=== PATIENT | female | born 1980 | race Caucasian/White ===

== ENCOUNTER 2016-12-02 09:12 | Outpatient (CLI) | payer MEDICAID, OTHER ==
[~2016-12-02] VITALS: Ht 165.1 cm; Wt 100.0 kg
[2016-12-02 09:32] VITALS: Ht 165.1 cm; Wt 100.0 kg
[2016-12-02] MEDS ORDERED: PRENAT PO (09:32)
--- NOTE | 2016-12-02 10:59 | RADRPT ---
PROCEDURE: US OB biophysical profile. CLINICAL INDICATION: decreased movements, single artery TECHNIQUE: Multiple sonographic images of the pelvis were obtained. The images were reviewed on a PACS workstation. COMPARISON: No prior studies are available for comparison. FINDINGS: There is a single viable intrauterine gestation. Cardiac activity is present with 140 beats per min [place]. There is a vertex presentation. The placenta is posterior. There is no evidence of placental abruption. There is a normal amount of amniotic fluid with an GUERRERO = 15.6 cm. Biophysical profile: movement 2/2 tone 2/2. breathing 2/2 GUERRERO 2/2 Total 03/10 RPTAT: AA . IMPRESSION: Normal biophysical profile. . .Zay Roberts MD, Date Time Electronically viewed and signed by .Zay Roberts MD, MD on 12/02/2016 10:58 .S/
--- NOTE | 2016-12-02 11:00 | RADRPT ---
PROCEDURE: US OB. CLINICAL INDICATION: Size and dates , single artery TECHNIQUE: Multiple sonographic images of the pelvis and gravid uterus were obtained. The images were reviewed on a PACS workstation. COMPARISON: No prior studies are available for comparison. FINDINGS: There is a single viable intrauterine gestation. Cardiac activity is present with 128 beats per min saimr. There is a vertex presentation. The placenta is posterior. There is no evidence for an abruption or placenta previa. There is a normal amount of amniotic fluid with an GUERRERO = 15.6 cm. Measurements were made in order to determine age. The results are as follows: BPD =9.1 cm HC =33.4 cm AC =35.3 cm FL =7.2 cm Estimated gestational age of approximately 37 weeks and 6 days based on ultrasound measurements. Clinical age: 40 weeks and 0 days. The estimated date of delivery is 12/17/16, based on ultrasound measurements. The EFW = 3443 g, 35%, based on LMP age. The anatomy was not evaluated. RPTAT: AA IMPRESSION: Single viable intrauterine gestation of approximately 37 weeks and 6 days based on ultrasound measu rements. Smaller than clinical age by 2 weeks. .Zay Roberts MD, MD Date Time Electronically viewed and signed by .Zay Roberts MD, on 12/02/2016 10:59 .S/
--- NOTE | 2016-12-02 11:21 | QN ---
Documentation Comment @40+wks GA for NST BPP ,Decision is made to admit the patient and induce her labor NSt reassuring Irregular CTXs Cs She signs AMA as she would like to be delivered in [facility] Patients questions are extensively answered Patient is directly going to [facility] ALEK MONTERO M.D. December 02, 2016 11:21
== END 2016-12-02 11:35 | disposition left against medical advice (07) ==
LOC: OBT 09:12 → L-D 09:13 → OBT 11:35
PROVIDERS: ATTEND Obstetrics & Gynecology
DX: O62.9 Abnormality of forces of labor, unspecified (principal); O09.523 Supervision of elderly multigravida, third trimester; O48.0 Post-term pregnancy; Z3A.40 40 weeks gestation of pregnancy
CPT/HCPCS: 76815; 76818; Z7500; G0463

== ENCOUNTER 2017-05-05 05:43 | Day surgery (SDC) | payer OTHER ==
[2017-05-04 09:37] VITALS: BMI 32.9
[2017-05-05] VITALS (11 sets, daily range): BP systolic 105–134; BP diastolic 64–88; PULSE 66–87; RESP 15–26; Ht 162.6 cm; Wt 93.2 kg
[~2017-05-05] VITALS: Ht 162.6 cm; Wt 93.2 kg
[~2017-05-05 05:43] MED LIST: BUPIVACAINE 0.5%/EPI (SDV) 30 ML INJ INJ ONE; PRENAT PO
--- NOTE | 2017-05-05 06:52 | HP ---
Date/Time of Note Date/Time of Note DATE: 05/05/17 TIME: 06:50 Assessment/Plan VTE Prophylaxis VTE Prophylaxis Intervention: SCD's Lines/Catheters IV Catheter Type (from Nrs): Peripheral IV HPI/ROS Admit Date/Time Admit Date/Time patient is requesting permanent sterilization. Risks and benefits and indications and alternatives discussed patients. risks including but not limited to infection, bleeding, damage to other organs such as intestines or bladder, blood transfusion and possibility of failure of procedure discussed with patient. I also explained to her this procedures is permanent and not reversible. other reversible contraceptive methods also discussed with patient. patient also told that our plan is Laparoscopic BTL, but some times the surgery may be converted to Exploratory Laparotomy. Informed consent obtained Allergies: NKDA Medications:none ROS: Significant as above Review of Systems: Constitutional: Denies nausea, vomiting, Fever, Chills, weight loss Eyes: denies pain, discharge or redness Nose: denies pain or bleeding Respiratory: denies SOB, cough or wheezing Cardiovascular: denies chest pain, palpitations or lightheadedness Gastrointestinal: Denies nausea, vomiting, blood in stool Genitourinary: Denies hematuria, dysuria, or flank pain Musculoskeletal: Denies joint pain or swelling Skin: Denies rash, erythema or laceration Neuro: Denies confusion, seizure, headache or dizziness Endocrine: Denies excessive urination or drinking Past Medical History: none Past Surgical Historynone Physical Exam: Afebrile, VSS NAD A&O Heart: RRR Lung: CTA B Abdomen: Soft, Not tender Extremities: No edema Assessment: Patients desires permanent sterilization Plan: Laparoscopic BTL, Possible Exploratory Laparotomy. Exam/Review of Systems Vital Signs Vitals Vital Signs Date Time Temp Pulse Resp B/P Pulse Ox O2 Delivery O2 Flow Rate FiO2 05/05/17 06:40 97.5 87 16 134/88 100 Room Air LUANNE STEVENSON MD May 05, 2017 06:52
[2017-05-05] MEDS ORDERED: LACTATED RINGER'S 1,000 ML IV* SCH (07:00)
[2017-05-05] MEDS ORDERED: CEFAZOLIN 2 GM/50 ML (PMX) 50 ML IVPB SCH (07:00)
[2017-05-05] MEDS ORDERED: BUPIVACAINE 0.5%/EPI (SDV) 30 ML INJ ONE (07:18)
[2017-05-05] MEDS ORDERED: PROPOFOL 20 ML ONE (07:22)
[2017-05-05] MEDS ORDERED: FENTAnyl 50 MCG/ML VIAL ONE (07:22)
[2017-05-05] MEDS ORDERED: ROCURONIUM 50 MG INJ ONE (07:22)
[2017-05-05] MEDS ORDERED: DEXAMETHASONE 4 MG/ML 1 ML INJ ONE (07:52)
[2017-05-05] MEDS ORDERED: METOCLOPRAMIDE 10 MG INJ ONE (07:52)
[2017-05-05] MEDS ORDERED: KETOROLAC 30 MG INJ ONE (07:52)
[2017-05-05] MEDS ORDERED: CEFAZOLIN 1 GM INJ ONE (07:52)
[2017-05-05] MEDS ORDERED: ONDANSETRON 4 MG INJ ONE (07:52)
[2017-05-05] MEDS ORDERED: SUGAMMADEX SODIUM 200 MG/2 ML VIAL IV ONE (07:54)
--- NOTE | 2017-05-05 07:57 | RADRPT ---
PROCEDURE: XR Chest. CLINICAL INDICATION: Preop TECHNIQUE: A single AP view of the chest was obtained. COMPARISON: None. FINDINGS: No focal airspace opacification, pleural effusion or pneumothorax is seen. The cardiomediastinal si lhouette is within normal limits for size. The osseous structures are unremarkable. IMPRESSION: Unremarkable chest x-ray. RPTAT: HH .Krystyna Mc MD, MD Date Time Electronically viewed and signed by .Krystyna Mc MD, on 05/05/2017 07:57 .G/
[2017-05-05] MEDS ORDERED: ONDANSETRON 4 MG INJ IV PRN (08:00)
[2017-05-05] MEDS ORDERED: MEPERIDINE 25 MG INJ IV PRN (08:00)
[2017-05-05] MEDS ORDERED: morphine (1 MG/ML) 10ML SYRINGE IV PRN ×3 (08:00)
[2017-05-05] MEDS ORDERED: FENTAnyl 50 MCG/ML VIAL IV PRN ×3 (08:00)
--- NOTE | 2017-05-05 08:20 | OPR ---
Date/Time of Note Date/Time of Note DATE: 05/05/17 TIME: 08:17 Operative Report Free Text/Dictation DATE OF OPERATION: PREOPERATIVE DIAGNOSIS: Patient desires permanent sterilization. She declined Essure. She desires laparoscopic tubal fulguration. POSTOPERATIVE DIAGNOSIS: Patient desires permanent sterilization. She declined Essure. She desires laparoscopic tubal fulguration. OPERATION PERFORMED: Laparoscopic fulguration and transection of bilateral tubes. SURGEON: Bennett Hdz MD ESTIMATED BLOOD LOSS: Minimal. COMPLICATIONS: None. FINDINGS: Normal tubes, ovaries bilaterally. Normal uterus. CONSENT: Please see my preop H and P consent in the office for the consent process. DESCRIPTION OF PROCEDURE: She was taken to operating room and general anesthesia was induced. She was prepped and draped in the usual sterile fashion in dorsal lithotomy position. Surgical time-out was done. Anterior lip of the cervix was grasped using a single-tooth tenaculum, and a HUMI was inserted in normal fashion. The tenaculum was removed. There was no bleeding from the cervix. The patient already had a Emery catheter as well. Gloves were changed. A 5 mm incision was developed inside the umbilicus. A blunt trocar was inserted in the normal fashion. Intraperitoneal position was confirmed using the laparoscope. Pneumoperitoneum was obtained. The patient was placed in Trendelenburg position. A second trocar was inserted under direct visualization of the laparoscope at the pubic hairline in the midline. A 5 cm midampullary region of the right tube was coagulated. Complete desiccation of the entire diameter of tube was visualized. The middle of the coagulated portion was cut. There was no bleeding. Same procedure was done on the contralateral side. All instruments removed under direct visualization of the laparoscope after pneumoperitoneum was released. There was no bleeding. Skin closed using 4-0 Monocryl. Then 10 mL 0.25% Marcaine with epinephrine was injected at the incision sites. HUMI was removed. There was no bleeding from the vagina. Patient tolerated the procedure well. 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
--- NOTE | 2017-05-07 09:18 | RADRPT ---
Vent Rate: 62 bpm RR Interval: 0 msec SC Interval: 154 msec QRS Duration: 108 msec QT Interval: 432 msec QTC Interval: 438 msec P-R-T [place]: 37 - 70 - 42 degrees Normal sinus rhythm Normal ECG Electronically Signed By: Larry Singleton [id number]
== END 2017-05-05 09:12 | disposition home or self-care (01) ==
LOC: SDS 05:43
PROVIDERS: ATTEND Specialist
DX: Z30.2 Encounter for sterilization (principal)
CPT/HCPCS: 58670; 71010; 84703; 93005; J0690; J1100; J1885; J2405; J2765; J3010; Z7512; Z7610